=== PATIENT | male | born 1985 | race Caucasian/White ===

== ENCOUNTER 2017-03-08 23:09 | Emergency (ER) | payer MEDICAID ==
--- NOTE | 2017-03-08 23:21 | EDPHY ---
H & P Stated Complaint: L shoulder pain x 2 weeks; unk cause; can feel pain with eye movement HPI/ROS: HPI CHIEF COMPLAINT: Left shoulder pain HISTORY OF PRESENT ILLNESS: This patient very pleasant 32-year-old male, otherwise healthy no significant medical history does not take any daily medications he presents emergency room left shoulder pain x2 weeks. It is not gotten worse but has been ongoing. He denies any injury. It does hurt with range of motion especially abducting his left arm. When he supinates and pronates his wrist give him left shoulder pain. His exam is consistent with most likely a rotator cuff injury. His left arm is neurovascularly intact good cap refill, good radial pulse. Pain is currently 6/10. Dull ache. Worse with range of motion. No chest pain or shortness of breath. He states the same thing happened to his right shoulder with a rotator cuff injury. He has not had any surgery. He denies recent injury. He does work in [employer]. He states his left shoulder pain is affecting his job. He is referred to the emergency room by his employer. He denies injury. He is not take any anti-inflammatory pain medicine. Past Medical History: No significant medical history Past Surgical History: Dental surgery Social History: Works in [employer], denies drugs alcohol tobacco products. Family History: Noncontributory ROS REVIEW OF SYSTEMS: A comprehensive 10 point review of systems is otherwise negative aside from elements mentioned in the history of present illness. Exam Constitutional triage nursing summary reviewed, vital signs reviewed, awake/ alert. Eyes normal conjunctivae and sclera, EOMI, PERRLA. HENT normal inspection, atraumatic, moist mucus membranes, no epistaxis, neck supple/ no meningismus, no raccoon eyes. Respiratory clear to auscultation bilaterally, normal breath sounds, no respiratory distress, no wheezing. Cardiovascular rate normal, regular rhythm, no murmur, no edema, distal pulses normal. Gastrointestinal soft, non-tender, no rebound, no guarding, normal bowel sounds, no distension, no pulsatile mass. Genitourinary no CVA tenderness. 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 Axillary nerve is intact. Has pain to the left shoulders range of motion in abduction of his left arm rather severe. No clicking. no midline vertebral tenderness, full range of motion, no calf swelling, no tenderness of extremities , no meningismus, good pulses, neurovascularly intact. Skin pink, warm, & dry, no rash, skin atraumatic. Neurologic awake, alert and oriented x 3, AAOx3, moves all 4 extremities equally, motor intact, sensory intact, CN II-XII intact, normal cerebellar, normal vision, normal speech. Psychiatric normal mood/affect. Heme/Lymph/Immune no lymphadenopathy. Differential Diagnosis: Includes but is not limited to in a particular order, rotator cuff injury, rotator cuff tear, shoulder arthritis, soft tissue injury, musculoskeletal pain, doubt septic joint of left shoulder given no fever, not red, not exquisitely tenderness. Full range of motion. Medical Decision Making: Plan for this patient x-ray left shoulder, sling, anti -inflammatory pain medicine. If x-ray is unremarkable will refer to orthopedics for most likely rotator cuff injury. Re-evaluation: 1205AM: X-ray reviewed. Shows nothing acute. No fracture. Recommend sling, ice, anti-inflammatories and orthopedic follow-up. Most likely has a rotator cuff injury. Updated patient understands. He understands return precautions. Source: Patient - Personal History Current Tetanus/Diphtheria Vaccine: Yes - Medical/Surgical History Hx Asthma: No Hx Chronic Respiratory Disease: No Hx Diabetes: No Hx Cardiac Disease: No Hx Renal Disease: No Hx Cirrhosis: No Hx Alcoholism: No Hx HIV/AIDS: No Hx Splenectomy or Spleen Trauma: No Other PMH: PSHx: oral surgery. PMHx: anxiety - Social History Smoking Status: Current every day smoker Constitutional: Initial Vital Signs Temperature (C) 36.6 C 03/08/17 23:11 Heart Rate 86 03/08/17 23:11 Respiratory Rate 16 03/08/17 23:11 Blood Pressure 121/76 H 03/08/17 23:11 O2 Sat (%) 97 03/08/17 23:11 O2 Delivery Mode Room Air,Oxymizer Allergies/Adverse Reactions: Sulfa (Sulfonamide Antibiotics) Allergy (Verified 03/08/17 23:11) Home Medications: Medication Instructions Recorded Ibuprofen [Motrin (*)] 800 mg PO Q6-8PRN #14 tab 03/08/17 VENLAFAXINE HCL 03/08/17 Medical Decision Making - Diagnostics Imaging Results: Imaging Impressions Shoulder X-Ray 03/08/17 23:32 Impression: 1. No definite acute fracture. 2. Consider additional imaging if symptoms persist, if clinically indicated. - Data Points Medications Given: Discontinued Medications Ibuprofen (Motrin) 800 mg PO EDNOW ONE Stop: 03/08/17 23:33 Last Admin: 03/08/17 23:36 Dose: 800 mg Departure - Departure Disposition: Home, Routine, Self-Care Clinical Impression: Rotator cuff injury Qualifiers: Encounter type: initial encounter Laterality: left Qualified Code(s): S46.002A - Unspecified injury of muscle(s) and tendon(s) of the rotator cuff of left shoulder, initial encounter Condition: Good Instructions: Rotator Cuff Injury (ED), Arthralgia (ED) Additional Instructions: 1. Please ice your shoulder. 2. Take anti-inflammatory pain medicine for pain control. 3. Stay in her sling for comfort. 4. Follow up with Orthopedics. Call their for an appointment. Referrals: NONE *PRIMARY CARE P,. [Primary Care Provider] - As per Instructions Lance Hayden MD [Medical Doctor] - As per Instructions Prescriptions: Ibuprofen [Motrin (*)] 800 mg PO Q6-8PRN #14 tab
[2017-03-08] MEDS ORDERED: IBUPROFEN 200 MG TAB PO ONE (23:32)
[2017-03-09 00:18] VITALS: BP 123/82; PULSE 62; RESP 20; TEMP 98.6; O2SAT 94
== END 2017-03-09 00:17 | disposition home or self-care (01) ==
DX: S46.002A Unspecified injury of muscle(s) and tendon(s) of the rotator cuff of left shoulder, initial encounter (principal); F17.200 Nicotine dependence, unspecified, uncomplicated; X50.9XXA Other and unspecified overexertion or strenuous movements or postures, initial encounter
CPT/HCPCS: A4565